=== PATIENT | female | born 1965 | race Hispanic/Latino ===

== ENCOUNTER 2018-01-26 00:55 | Emergency (ER) | payer OTHER ==
[2018-01-26 01:29] VITALS: BMI 19.7
[2018-01-26 01:33] VITALS: TEMP 98.1
[2018-01-26 02:31] LABS: BASO % 0.6 % (0.0-2.0); EOS # 0.1 K/uL (0.0-0.7); EOS % 2.5 % (0.0-4.0); HEMOGLOBIN 12.1 g/dL (12.0-16.0); LYMPH # 2.9 K/uL (1.0-4.3); LYMPH % 53.5 % (20.0-40.0); MEAN CELL VOLUME 92.8 fl (81.0-99.0); MEAN CORPUSCULAR HEMOGLOBIN 30.7 pg (27.0-31.0); MEAN PLATELET VOLUME 9.4 fl (7.2-11.7); MONO # 0.3 K/uL (0.0-0.8); MONO % 6.5 % (0.0-10.0); NEUT % 36.9 % (50.0-75.0); NRBC % 0.1 % (0.0-0.0); RBC 3.96 Mil/uL (3.80-5.20); RED CELL DISTRIBUTION WIDTH 12.4 % (11.5-14.5); WHITE BLOOD COUNT 5.4 K/uL (4.8-10.8)
[2018-01-26 02:36] LABS: ALB/GLOB RATIO 1.4 (1.0-2.1); ALBUMIN 4.1 g/dL (3.5-5.0); ALT/SGPT 57 U/L (9-52); AST/SGOT 93 U/L (14-36); BLOOD UREA NITROGEN 14 mg/dl (7-17); CALCIUM 8.5 mg/dL (8.4-10.2); GFR NON-AFRICAN AMERICAN > 60
--- NOTE | 2018-01-26 05:27 | ED PDOC ---
HPI: General Adult Time Seen by Provider: 01/26/18 01:34 Chief Complaint (Nursing): Trauma Chief Complaint (Provider): Head injury, slip and fall History Per: Patient History/Exam Limitations: no limitations Onset/Duration Of Symptoms: Days Have you had recent travel within the past 21 days to any of the following countries: [place], [place], [place] or [place]?: No Current Symptoms Are (Timing): Still Present Additional Complaint(s): 52 yo female with no medical problems presents for evaluation of head injury after a slip and fall. Pt states she has been drinking tonight, 3-4 drinks with vodka. Pt states she slipped on water, unknown LOC> Past Medical History Reviewed: Historical Data, Nursing Documentation, Vital Signs Vital Signs: Last Vital Signs Temp 98.1 F 01/26/18 01:29 Pulse 69 01/26/18 01:40 Resp 15 01/26/18 01:40 BP 105/65 01/26/18 01:40 Pulse Ox 95 01/26/18 01:40 - Medical History PMH: No Chronic Diseases Denies: Chronic Kidney Disease - Surgical History Surgical History: No Surg Hx - Family History Family History: States: No Known Family Hx - Living Arrangements Living Arrangements: With Family - Social History Current smoker - smoking cessation education provided: No Alcohol: Occasional Drugs: Denies - Allergies Allergies/Adverse Reactions: Allergies Allergy/AdvReac Type Severity Reaction Status Date / Time No Known Allergies Allergy Verified 01/26/18 01:29 Review of Systems ROS Statement: Except As Marked, All Systems Reviewed And Found Negative Constitutional: Negative for: Fever, Chills Respiratory: Negative for: Cough, Shortness of Breath Gastrointestinal: Positive for: Nausea. Negative for: Vomiting Neurological: Positive for: Headache. Negative for: Dizziness Physical Exam - Reviewed Nursing Documentation Reviewed: Yes Vital Signs Reviewed: Yes - Physical Exam Appears: Positive for: Well, Non-toxic, No Acute Distress Head Exam: Positive for: NORMAL INSPECTION, NORMOCEPHALIC. Negative for: ATRAUMATIC (Posterior hematoma ) Skin: Positive for: Normal Color, Warm, DRY Eye Exam: Positive for: Normal appearance ENT: Positive for: Normal ENT Inspection Neck: Positive for: Normal, Painless ROM Cardiovascular/Chest: Positive for: Regular Rate, Rhythm Respiratory: Positive for: Normal Breath Sounds. Negative for: Accessory Muscle Use, Respiratory Distress Back: Positive for: Normal Inspection Extremity: Positive for: Normal ROM Neurologic/Psych: Positive for: Alert, Oriented - Laboratory Results Result Diagrams: 01/26/18 02:25 01/26/18 02:25 - ECG O2 Sat by Pulse Oximetry: 95 Pulse Ox Interpretation: Normal Medical Decision Making Medical Decision Making: Head and neck CT normal. Elevated alcohol. 0520 - Pt alert and oriented with steady gait and clear speeach Disposition - Clinical Impression Clinical Impression: Alcohol abuse, Head injury - Disposition Disposition: Routine/Home Disposition Time: 05:21 Condition: GOOD Instructions: Closed Head Injury
[2018-01-26 07:17] VITALS: BP 107/89; PULSE 70; RESP 16; O2SAT 99
--- NOTE | 2018-01-26 10:18 | CT ---
Date of service: 01/26/2018 PROCEDURE: CT HEAD WITHOUT CONTRAST. HISTORY: Head injury, ETOH COMPARISON: None available. TECHNIQUE: Axial computed tomography images were obtained through the head/brain without intravenous contrast. Radiation dose: Total exam DLP = 811.87 mGy-cm. This CT exam was performed using one or more of the following dose reduction techniques: Automated exposure control, adjustment of the mA and/or kV according to patient size, and/or use of iterative reconstruction technique. FINDINGS: HEMORRHAGE: No intracranial hemorrhage. BRAIN: No mass effect or edema. No atrophy or chronic microvascular ischemic changes. VENTRICLES: No obstructive hydrocephalus. CALVARIUM: No acute calvarial fractures. There is mild right posterior superior parietal soft tissue swelling/scalp contusion. PARANASAL SINUSES: Unremarkable as visualized. No significant inflammatory changes. MASTOID AIR CELLS: Unremarkable as visualized. No inflammatory changes. OTHER FINDINGS: None. IMPRESSION: No acute intracranial hemorrhage. Mild right posterior superior parietal soft tissue swelling/scalp contusion.
--- NOTE | 2018-01-26 10:34 | CT ---
Date of service: 01/26/2018 PROCEDURE: CT Cervical Spine without contrast HISTORY: Head injury, ETOH COMPARISON: None available. TECHNIQUE: Axial computed tomography images were obtained of the cervical spine without the use of intravenous contrast. Coronal and sagittal reformatted images were created and reviewed. Radiation dose: Total exam DLP = 223.25 mGy-cm. This CT exam was performed using one or more of the following dose reduction techniques: Automated exposure control, adjustment of the mA and/or kV according to patient size, and/or use of iterative reconstruction technique. FINDINGS: VERTEBRAE: No acute displaced nor compression fractures. Vertebral bodies exhibit relatively normal stature. Vertebral bodies and facets normally aligned. DISCS/SPINAL CANAL/NEURAL FORAMINA: Mild multilevel degenerative spondylosis. At the C6-C7 level, there is disc space narrowing with mild cortical endplate irregularity and irregular disc ridge complex contiguous with hypertrophic uncovertebral joints. Changes result in mild compressive effects on the ventral surface of the thecal sac and presumed mild cord compression as well. Central canal is marginal to minimally narrowed. Exit foramina stenotic bilaterally. At the C5-C6 level, there is also disc space narrowing with cortical endplate irregularity and small asymmetric disc ridge complex contiguous with right and to a lesser degree left-sided hypertrophic uncovertebral joints. Changes result in mild compressive effects on the ventral surface of the thecal sac more so on the right side. Central canal appears adequate. Right exit foramen is stenotic. Left exit foramen is mildly narrowed. At the C4-C5 level, there is mild disc space narrowing with small broad based on the bulge. Mild hypertrophic uncovertebral joints left greater than right. Facets also hypertrophic.. There is mild flattening of the ventral surface of the thecal sac however the overall central canal appears adequate. Exit foramina are adequate on the right and marginal to slightly narrowed on the left. At the C3-C4 level, there is small asymmetric broad-based bulge with slight flattening of the ventral surface of the thecal sac more so on the left side. The uncovertebral facets also mildly hypertrophic. Exit foramina are adequate. At the C2-C3 level, there is mild hypertrophic uncovertebral joints. Minimal central and bilateral disc bulge flattens the ventral surface of the thecal sac however the overall central canal appears adequate. Exit foramina adequate. PARASPINAL SOFT TISSUES: Unremarkable. OTHER FINDINGS: None. IMPRESSION: No acute fractures. Mild multilevel degenerative spondylosis most significantly affecting the C6-C7 level as above
== END 2018-01-26 06:16 | disposition home or self-care (01) ==
LOC: H.ER 00:55
DX: S09.90XA Unspecified injury of head, initial encounter (principal); F10.10 Alcohol abuse, uncomplicated; W01.0XXA Fall on same level from slipping, tripping and stumbling without subsequent striking against object, initial encounter